=== PATIENT | male | born 1970 | race Caucasian/White ===

== ENCOUNTER 2024-01-30 07:00 | Outpatient (RCR) | payer OTHER | END 2024-02-04 | LOC: PT 07:00 | PROVIDERS: ATTEND Specialist | DX: M47.816 Spondylosis without myelopathy or radiculopathy, lumbar region (principal); M54.50 Low back pain, unspecified; G89.29 Other chronic pain; M62.81 Muscle weakness (generalized); M53.86 Other specified dorsopathies, lumbar region ==

== ENCOUNTER → 2024-03-06 | Outpatient (RCR) | payer OTHER | LOC: PT 02-06 07:17 | PROVIDERS: ATTEND Specialist | DX: M47.816 Spondylosis without myelopathy or radiculopathy, lumbar region (principal); M54.50 Low back pain, unspecified; M62.81 Muscle weakness (generalized); M53.86 Other specified dorsopathies, lumbar region; G89.29 Other chronic pain ==

== ENCOUNTER 2024-04-04 13:00 | Outpatient (RCR) | payer OTHER | END 2024-04-06 | LOC: PT 13:00 | PROVIDERS: ATTEND Specialist | DX: M47.816 Spondylosis without myelopathy or radiculopathy, lumbar region (principal); M54.50 Low back pain, unspecified; G89.29 Other chronic pain; M62.81 Muscle weakness (generalized); M53.86 Other specified dorsopathies, lumbar region ==